=== PATIENT | female | born 1990 | race Caucasian/White ===

== ENCOUNTER 2023-09-23 06:00 | Emergency (ER) | payer OTHER, SELFPAY ==
--- NOTE | ~2023-09-23 | XR_ITS ---
EXAMINATION: XR KNEE, LEFT CLINICAL INFORMATION: Status post fall. Pain. COMPARISON: None available. TECHNIQUE: AP, lateral radiographs of the left knee FINDINGS: No fractures or malalignments identified. No joint effusion visualized. No soft tissue inflammatory changes noted. Normal bone mineralization. XR/XR knee LT 3V IMPRESSION: Normal radiographs of the left knee.
[2023-09-23 06:18] VITALS: BP 135/87; PULSE 103; RESP 16; TEMP 36.5; O2SAT 96; BMI 23.3
--- NOTE | 2023-09-23 06:40 | ED_ITS ---
HPI - Extremity Injury (Lower) General Chief Complaint: Extremity Injury, Lower Stated Complaint: fell in machine sewer/manhole Time Seen by Provider: 09/23/23 06:31 Source: patient and RN notes reviewed Mode of arrival: ambulatory Limitations: no limitations History of Present Illness ED Provider: Jess Amato PA-C HPI Narrative: This is a 32-year-old female, with no known medical problems, who presents emergency department with complaints of left leg pain. Patient states that yesterday afternoon she was walking along a sidewalk when suddenly she stepped into a large man hole approximating it to be around 4 ft. Patient denies hitting her head or loss of consciousness. She states that she struck her leg and has had increased pain and bruising to her left anterior thigh. He has been able to weightbear on her left leg however this causes her to have pain. She also endorses some intermittent nausea for the last several days, concern for . She otherwise denies any fevers, chills, chest pain, shortness of breath, abdominal pain, diarrhea or urinary symptoms. She is sexually active. Her last menstrual period was approximately 1-2 weeks ago, unable to report the exact date. She is not on blood thinners. No other complaints or concerns at this time. MD complaint: thigh injury, knee injury and leg injury Place: street/outdoors Severity: moderate Relieving factors: cold therapy and immobilization Exacerbating factors: weight bearing, movement and palpation Context: fall Associated symptoms: able to partially bear weight Other symptoms: none Related Data Previous Rx's ?Medication ?Instructions ?Recorded acetaminophen 500 mg tablet 500 mg PO Q6H PRN pain #30 tabs 09/23/23 (Tylenol Extra Strength) ibuprofen 600 mg tablet 600 mg PO Q6H PRN pain #30 tabs 09/23/23 Allergies Allergy/AdvReac Type Severity Reaction Status Date / Time azithromycin Allergy Hives Verified 09/23/23 06:20 [From Zithromax Z-Ross] Review of Systems Review of Systems: Yes all other systems are reviewed and are negative Constitutional: Constitutional: Reports as per [facility] Past Medical History Attestation statement: The following information was validated with the patient. Social History Social History Smoked in Last 30 Days: Yes Use of substances other than those prescribed or required for medical reasons: Unknown Advance Directives: No Advance Directives Information Provided: No Do you have a plan to hurt others: No Plan Physical Exam Vital Signs: Vital Signs: Last Vital Signs Temp 97.7 F 09/23/23 06:18 Pulse 103 H 09/23/23 06:18 Resp 16 09/23/23 06:18 BP 135/87 09/23/23 06:18 Pulse Ox 96 09/23/23 06:18 O2 Del Method Room Air 09/23/23 06:18 BMI result Body Mass Index 23.3 Const: General: cooperative, comfortable and no acute distress Orientation/consciousness: patient oriented x3 Limitations: no limitations HEENT: Head: Yes normal to inspection, Yes normocephalic and Yes atraumatic Ears: hearing grossly normal bilaterally General nose exam: Normal external nose present Face and sinus: Yes normal facial exam Mouth: Normal oral and palatal mucosa present, oropharynx normal and moist mucous membranes Throat: Yes posterior oropharynx normal Eyes: General: appearance normal, both eyes and all related structures Eyelids: Yes eyelids normal Conjunctivae: conjunctivae normal Sclerae: sclerae normal Pupils: Equal, round and reactive pupils present EOM: EOMs intact bilaterally Neck: Neck: Yes normal visual inspection, Yes full ROM and Yes no lymphadenopathy Lymphatic: no lymphadenopathy noted Chest: Chest palpation & inspection: normal inspection of the chest Resp: Effort & Inspection: normal respiratory effort and able to speak in complete sentences Auscultation: clear to auscultation bilaterally, no crackles, no rales, no rhonchi and no wheezes Cardio: Rate: regular rate Rhythm: regular rhythm Heart sounds: S1 normal heart sound present and S2 normal heart sound present GI: Inspection: Yes normal to inspection Skin: General skin exam: no rashes or lesions noted Trauma: no lacerations or abrasions Wounds: no wounds Neuro: General: patient oriented x3 and moves all extremities Cranial nerves: Yes Equal, round and reactive pupils present Extrem: Other: Left anterior thigh with approximately 12 x 12 cm superficial hematoma with superficial abrasions. No open wounds. TTP. Full ROM of the left ankle, foot, and knee. Left knee with ttp throughout entire knee joint without any specific joint tenderness or obvious deformity or swelling. General: Yes normal to inspection Right upper extremity: normal to inspection Left upper extremity: normal to inspection Right lower extremity: normal to inspection Course Reevaluation(s) Reevaluation #1: X-ray reviewed, no bony abnormality seen. Urine returns, appears to be contaminated. She has no new urinary symptoms therefore, will await urine culture. She has not . There is food wrappers in her room and has been eating. Discussed workup today with patient, advised follow-up with her PCP and given return precautions. She understands and agrees with plan. Patient stable for discharge. Time: 08:02 Medical Decision Making Medical Decision Making MDM Narrative: This is a 32-year-old female, with no known medical problems, who presents to the emergency department with complaints of left thigh and left knee pain status post falling into a hole yesterday afternoon. On arrival, patient mildly tachycardic at 103bpm, all other vital signs within normal limits. She has well-appearing under no acute distress. She has a large hematoma noted to her anterior left thigh with tenderness palpation, she has full range of motion of the knee, ankle and foot. She is ambulatory. She does endorse nausea over the last 3 days however she denies any fevers, chills, abdominal pain. She states that the nausea typically occurs in the morning. She is currently eating mcdonalds in the exam room. She states that she is concern for and would like to be tested today. Physical exam revealing some tenderness overlying anterior thigh and left knee. Her abdomen is soft and nontender. Plan: Urinalysis, upreg and x-ray of the left femur and left knee Differential Diagnosis Differential Diagnoses: The differential diagnosis associated with the presentation includes Fracture, sprain, strain, contusion, internal ligamentous derangement of the left knee, compartment syndrome-unlikely Lab Data [facility] Lab Attestation statement: I reviewed the patient's lab results. Narrowing with high specific gravity, protein, trace leuk esterases and wbc's, there is significant epithelial cells, likely contamination. She is asymptomatic therefore will not treat for urinary tract infection. Will await urine culture. Urine is negative Labs: Lab Results 09/23/23 Range/Units 07:25 Urine Color Dark Yellow Urine Appearance Cloudy Urine pH 5.5 (5.0-9.0) Ur Specific [place] >= 1.030 H (1.005-1.025) Urine Protein 30 (1+) H (Neg-Trace) mg/dL Urine Glucose (UA) Negative (Negative) mg/dL Urine Ketones Trace (Negative) mg/dL Urine Blood Negative (Negative) Urine Nitrite Negative (Negative) Ur Leukocyte Esterase Trace H (Negative) Urine RBC 0-2 (0-2) /HPF Urine WBC >50 H (0-5) /HPF Ur Squamous Epith Cells 11-20 (0-2) /HPF Urine Bacteria None Seen (None Seen) Hyaline Casts 11-20 (0-2) /LPF WBC Casts Present Urine Test NEGATIVE (NEGATIVE) Independent Interpretation I performed an independent interpretation of an: Plain X-Ray Interpretation: X-ray was reviewed by me, no acute bony abnormality seen. Radiology Impression Discussion of test interpretation with radiology: I have reviewed the radiologist's reading. Radiologist Impression: EXAMINATION: XR KNEE, LEFT CLINICAL INFORMATION: Status post fall. Pain. COMPARISON: None available. TECHNIQUE: AP, lateral radiographs of the left knee FINDINGS: No fractures or malalignments identified. No joint effusion visualized. No soft tissue inflammatory changes noted. Normal bone mineralization. XR/XR knee LT 3V IMPRESSION: Normal radiographs of the left knee. Dictated By: Marek Mcknight MD Discharge Plan Discharge Clinical Impression: Left thigh pain, Hematoma Patient Disposition: Home, Self-Care Instructions: Leg Pain (ED) Additional Instructions: You were seen in the ER due to left leg pain after falling into a man hole. Your xray of your leg did not show any broken bones. Your urine test was negative today. Your urine will be sent out for further testing and we will call you with any abnormal results. Drink plenty of fluids and get plenty of rest. Rest, Ice, use morgan wrap and elevate your left leg. Take ibuprofen and/or tylenol as needed for pain and symptoms. Watch for any new or worsening symptoms including but not limited to worsening pain, swelling, redness, fevers, chills. If any of these occur, please return for re-evaluation. Prescriptions: New ibuprofen 600 mg tablet 600 mg PO Q6H PRN (Reason: pain) Qty: 30 0RF acetaminophen [Tylenol Extra Strength] 500 mg tablet 500 mg PO Q6H PRN (Reason: pain) Qty: 30 0RF Print Language: Citizen [place]
[2023-09-23 07:33] LABS: Appearance Urine Cloudy; Color Urine Dark Yellow; Glucose Urine UA Negative (Negative); Leukocyte Esterase Urine Trace (Negative); Nitrite Urine Negative (Negative); PH 5.5 (5.0-9.0); Specific Gravity - Urine >= 1.030 (1.005-1.025); UMIC TRIGGER UACC YES; Urine Blood Negative (Negative); Urine Ketones Trace mg/dL (Negative); Urine Protein 30 (1+) mg/dL (Neg-Trace)
[2023-09-23 07:36] LABS: UPreg QC Valid YES; Urine Pregnancy NEGATIVE (NEGATIVE)
--- NOTE | 2023-09-23 07:46 | PC.NURSE ---
Reports fell into a manhole last night, denies head hit or LOC. Reports she hit her left thigh, large bruise noted. CSMsX4 intact. Alert and oriented, breathing even and unlabored.
[2023-09-23 07:49] LABS: Bacteria Urine None Seen (None Seen); RBC Urine 0-2 /HPF (0-2); UACC Culture Trigger YES; WBC Urine >50 /HPF (0-5); White Blood Cell Casts Urine Present
[2023-09-23 08:31] VITALS: BP 114/80; PULSE 88; RESP 18; TEMP 36.7; O2SAT 97
--- OUTSIDE RECORDS SUMMARY | 2023-09-30 06:09 | XMS_ITS | Continuity of Care Document ---
Author Organization [facility] Address [address] [place] [address]- Care Team Providers Care Floorwalker Name Role Phone Elkin Boyd MD Primary Care Physician Encounter [facility] [place] Date(s): 12/17/20 - 01/16/21 [facility] [address] [place] [id number] Attending Physician: Cesar Rodriguez Admitting Physician: Cesar Rodriguez Referring Physician: Cesar Rodriguez Allergies, Adverse Reactions, Alerts Substance Reaction Severity Status Zithromax Active Immunizations Not Given Vaccine Date Status Refusal Reason Hepatitis B Immune Globulin 04/07/19 Not Given Patient Refuses hepatitis B adult vaccine 04/07/19 Not Given Pa tient Refuses Medications acamprosate 333 mg oral delayed release tablet 1 tablet = 333 mg, By Mouth, 3 times a day, # 270 tablet, 0 Refills, Maintenance, 10/30/20 8:45:00 EDT, EC Tablet, Partial fill upon patient request if the prescription is for a schedule II opioid drug. Start Date: 10/30/20 Status: Ordered cloNIDine 0.1 mg oral tablet 0.1 mg, By Mouth, 3 times a day, Refills 0, Maintenance, 12/23/16 7:16:18 Start Date: 12/23/16 Status: Ordered doxepin 100 mg oral capsule 1 capsule = 100 mg, By Mouth, Daily at bedtime, # 30 capsule, 0 Refills, Maintenance, 10/19/20 11:12:00 EDT, Capsule, Partial fill upon patient request if the prescription is for a schedule II opioiddrug. Start Date: 10/19/20 Status: Ordered folic acid 1 mg oral tablet 1 mg, 1, tablet, By Mouth, Daily, # 30 tablet, Refills 0, Tot. Refills 0, Maintenance, 10/30/20 8:37:00 EDT, Print Requisition, Partial fill upon patient request if the prescription is for a scheduleII opioid drug. Start Date: 10/30/20 Status: Ordered Librium Capsule See Instructions, PRN Anxiety, 10/19-10/20: 25 mg daily at bedtime, Maintenance, 10/19/20 16:10:00 EDT, Capsule, Partial fill upon patient request if the prescription is for a schedule II opioid drug. Start Date: 10/19/20 Status: Ordered methadone 10 mg oral tablet = 65 mg, By Mouth, Daily, # 195 tablet, 0 Refills, Acute 10/30/22 10:36:00 EDT, 10/30/20 10:35:00 EDT, Tablet, Partial fill upon patient request if the prescription is for a schedule II opioid drug. Start Date: 10/30/20 Stop Date: 10/30/22 Status: Ordered Multivitamin With Minerals 1 tablet, By Mouth, Daily, Maintenance, 10/19/20 16:10:00 EDT Start Date: 10/19/20 Status: Ordered nicotine 21 mg/24 hr transdermal film, extended release 1 patch, Topically, Daily, # 30 patch, 0 Refills, Acute 11/13/21 8:57:00 EDT, 10/30/20 8:57:00 EDT,Patch, Partial fill upon patient request if the prescription is for a schedule II opioid drug. Start Date: 10/30/20 Stop Date: 11/13/21 Status: Ordered thiamine 100 mg oral tablet 100 mg, 1, tablet, By Mouth, Daily, Maintenance, 10/19/20 16:10:00 EDT Start Date: 10/19/20 Status: Ordered Social History Social History Type Response Smoking Status Smoker, current stat us unknown entered on: 10/20/20 Sex
--- OUTSIDE RECORDS SUMMARY | 2023-09-30 06:09 | XMS_ITS | Continuity of Care Document ---
Author Organization [facility] Address [address] [place] [id number]- Care Team Providers Care Train Operations Supervisor Name Role Phone Aris Tam MD Primary Care Physician [phone] [place] [facility] [place]/03/[place] - 09/03/[address] [address]- Encounter Diagnosis Anxiety(Final) - 09/03/22 Discharge Disposition: A-D/C Home Attending Physician: Isatu Thomas MD Admitting Physician: Isatu Thomas MD Referring Physician: Not on Staff, Referring MD Allergies, Adverse Reactions, Alerts Substance Reaction Severity [...] 16:10:00 EDT Start Date: 10/19/20 Status: Ordered thiamine 100 mg oral tablet 100 mg, 1, tablet, By Mouth, Daily, Maintenance, 10/19/20 16:10:00 EDT Start Date: 10/19/20 Status: Ordered Vital Signs Most recent to oldest [Reference Range]: 1 2 3 Height 173 cm (09/03/22 10:22 AM) 173 cm (09/03/22 8:36 AM) 173 cm (09/03/22 8:35 AM) Oxygen Saturation [94-100 %] 98 % (09/03/22 12:41 PM) 98 % (09/03/22 8:36 AM) 98 % (09/03/22 8:30 AM) Pulse Rate [55-90 bpm] 60 bpm (09/03/22 12:41 PM) 75 bpm (09/03/22 8:36 AM) 92 bpm *H* (09/03/22 8:30 AM) Blood Pressure [90-138/55-84 mm Hg] 129/81mm Hg (09/03/22 12:41 PM) 119/82mm Hg (09/03/22 8:36 AM) Respiratory Rate [16-30 br/min] 16 br/min (09/03/22 12:41 PM) 16 br/min (09/03/22 8:36 AM) Temperature [96.8-100.4 DegF] 98.1 DegF (09/03/22 8:36 AM) Mode of Delivery (Oxygen) Room air (09/03/22 12:41 PM) Room air (09/03/22 8:36 AM) Room air (09/03/22 8:30 AM) Blood pressure sites Arm, left (09/03/22 12:41 PM) Arm, left (09/03/22 8:36 AM) Temperature Route Oral (09/03/22 8:36 AM) Dry Weight 67.8 kg (09/03/22 10:22 AM) 67.8 kg (09/03/22 8:36 AM) 67.8 kg (09/03/22 8:35 AM) Dry Weight Obtained Via Patient/family s tated (09/03/22 8:36 AM) Patient/family stated (09/03/22 8:35 AM) Social History Social History Type Response Smoking Status Smoker, current stat us unknown entered on: 10/20/20 Sex Patient Care team information Care Team Personnel Name: Ana GOTTI, Isabella Pozo Position: [facility] RN Member Role: Primary Care Nurse Name: Michaela Louis RN Position: [facility] RN Member Role: Primary Care Nurse Name: Aris Tam MD Position: Reference Physician Member Role: PCP Address: Address: [address] [facility] [place] [address]- [place] Name: *[facility], ED Attending Position: [facility] ED Attendings Patient Name: Renate Yoder RN Position: [facility] ED RN W/OE and Tasks Member Role: Patient Care Provider Name: Rach Hill Position: [facility] ED TA [facility] Name: Isatu Thomas MD Position: [facility] ED Medicine MD Member Role: Admitting Physician Address: Address: [address] [place] [address] [place] [address]- [place] Care Team Related Persons Name: JUDITH JIMÉNEZ Address: home [address] [place] [address] Name: JENNIFER GUAN Address: home [address] [address]
--- OUTSIDE RECORDS SUMMARY | 2023-09-30 06:09 | XMS_ITS | Continuity of Care Document ---
Author Organization [facility] Address [address] [place] [phone]- Care Team Providers Care Yard General Car Supervisor Name Role Phone Alek Pearl MD Primary Care Physician Encounter [place] Date(s): 10/19/20 - 10/30/[address] [phone]- Encounter Diagnosis Fever(Final) - 10/19/20 Discharge Disposition: A-D/C Home Attending Physician: Precious Banks MD Admitting Physician: Eva Baer MD Referring Physician: Not on Staff, Referring [...] opioid drug. Start Date: 10/30/20 Status: Ordered cephalexin monohydrate 500 mg oral capsule 1 capsule = 500 mg, By Mouth, Every 24 hours, From 11/04 to 11/18/20, # 14 capsule, 0 Refills, Acute 11/18/20 8:44:00 EDT, 11/04/20 8:44:00 EDT, Capsule, Partial fill upon patient request if the prescription is for a schedule II opioid drug. Start Date: 11/04/20 Stop Date: 11/18/20 Status: Ordered cloNIDine 0.1 mg oral tablet [...] opioid drug. Start Date: 10/30/20 Status: Ordered ibuprofen 800 mg oral tablet 800 mg, Tablet, By Mouth, 3 times a day, PRN for Temperature, Routine, 10/20/20 0:56:00 EDT Start Date: 10/20/20 Stop Date: 10/31/20 Status: Discontinued Librium Capsule See Instructions, PRN Anxiety, 10/19-10/20: 25 mg daily at bedtime, Maintenance, 10/19/20 16:10:00 EDT, Capsule, Partial fill upon patient request if the prescription is for a schedule II opioid drug. Start Date: 10/19/20 Status: Ordered methadone 10 mg oral tablet 60 mg, Tablet, By Mouth, 10/30/20 9:00:00 EDT Start Date: 10/30/20 Stop Date: 10/30/20 Status: Completed methadone 10 mg oral tablet = 65 [...] Date: 10/30/20 Stop Date: 11/13/21 Status: Ordered pyridoxine 50 mg oral tablet 50 mg, 1, tablet, By Mouth, Daily, # 30 tablet, Refills 0, Tot. Refills 0, Acute 11/30/20 8:38:00 EDT, 10/30/20 8:38:00 EDT, Print Requisition, Partial fill upon patient request if the prescription is for a schedule II opioid drug. Start Date: 10/30/20 Stop Date: 11/30/20 Status: Ordered thiamine 100 mg oral tablet 100 mg, 1, tablet, By Mouth, Daily, Maintenance, 10/19/20 16:10:00 EDT Start Date: 10/19/20 Status: Ordered Procedures Procedure Date Related Diagnosis Body Site Status Arthrocentesis, aspiration a nd/or injection, intermediate joint or bursa (eg, temporomandibular, acromioclavicular, wrist, elbow or ankle, olecranon bursa); without ultrasound guidance 1 10/22/20 Completed Incision and drainage, leg o r ankle; deep abscess or hematoma 2 10/22/20 Compl eted 1right SC joint 2Right tibiotalar joint and subtalar joint Results Orders for Microbiology Reports Name Date Anaerobic Culture (ANAEROBIC CULTURE) Wound Deep Culture w/ Gram Smear (DEEP W OUND CULTURE) 10/22/20 Anaerobic Culture 10/21/20 Sterile Body Fluid Culture W/ Gram Smear 10/21/20 Blood Culture 10/20/20 Blood Culture #2 10/20/20 Blood Culture 10/19/20 Blood Culture #2 10/19/20 Microbiology Reports TEST:Anaerobic Culture STATUS:Auth (Verified) BODY SITE: SOURCE:ASPIRA COLLECTED DATE/TIME:10/22/20 11:01 PM Anaerobic Culture SPECIMEN DESCRIPTION : ASPIRATE R ANKLE SPECIAL REQUESTS : LIMVOL CULTURE : NO ANAEROBES ISOLATED REPORT STATUS : FINAL 10/25/2020 TEST:Deep Wound Culture STATUS:Auth (Verified) BODY SITE: SOURCE:ASPIRA COLLECTED DATE/TIME:10/22/20 11:01 PM Deep Wound Culture SPECIMEN DESCRIPTION : ASPIRATE R ANKLE SPECIAL REQUESTS : LIMVOL GRAM STAIN : 2+ POLYMORPHONUCLEAR LEUKOCYTES 1+ TISSUE CELLS NO ORGANISMS SEEN CULTURE : 1+ STAPH. SPECIES, NOT STAPH. AUREUS REPORT STATUS : FINAL 10/25/2020 ORGANISM 1+ STAPH. SPECIES, NOT STAPH. AUREUS METHOD MIN. INHIB. CONC. (MCG/ML) CIPROFLOXACIN SUSCEPTIBLE ERYTHROMYCIN SUSCEPTIBLE LEVOFLOXACIN SUSCEPTIBLE RIFAMPIN SUSCEPTIBLE TRIMETH/SULFAMETHOX SUSCEPTIBLE VANCOMYCIN SUSCEPTIBLE TEST:Anaerobic Culture STATUS:Unauthenticated BODY SITE: SOURCE:JNTF COLLECTED DATE/TIME:10/21/20 5:05 PM Anaerobic Culture SPECIMEN DESCRIPTION : JOINT FLUID RIGHT ANKLE SPECIAL REQUESTS : LIMVOL CULTURE : NO ANAEROBES ISOLATED SO FAR. REPORT STATUS : PRELIMINARY REPORT TEST:Sterile Fluid Culture STATUS:Auth (Verified) BODY SITE: SOURCE:JOINT COLLECTED DATE/TIME:10/21/20 5:04 PM Sterile Fluid Culture SPECIMEN DESCRIPTION : JOINT FLUID RIGHT ANKLE SPECIAL REQUESTS : LIMVOL GRAM STAIN : 2+ POLYMORPHONUCLEAR LEUKOCYTES 3+ RBC'S 1+ TISSUE CELLS NO ORGANISMS SEEN CULTURE : NO GROWTH 2 DAYS REPORT STATUS : FINAL 10/24/2020 TEST:Blood Culture STATUS:Auth (Verified) BODY SITE: SOURCE:Blood COLLECTED DATE/TIME:10/20/20 3:23 AM Blood Culture SPECIMEN DESCRIPTION : BLOOD L FOREARM SPECIAL REQUESTS : NONE CULTURE : NO GROWTH 5 DAYS. REPORT STATUS : FINAL 10/25/2020 TEST:Blood Culture, Second Order STATUS:Auth (Verified) BODY SITE: SOURCE:Blood COLLECTED DATE/TIME:10/20/20 3:23 AM Blood Culture, Second Order SPECIMEN DESCRIPTION : BLOOD L WRIST SPECIAL REQUESTS : NONE CULTURE : NO GROWTH 5 DAYS. REPORT STATUS : FINAL 10/25/2020 TEST:Blood Culture, Second Order STATUS:Auth (Verified) BODY SITE: SOURCE:Blood COLLECTED DATE/TIME:10/19/20 12:33 PM Blood Culture, Second Order SPECIMEN DESCRIPTION : BLOOD NONE SPECIAL REQUESTS : CRITICAL VALUE CALLED AND VERIFIED BY READBACK FOR: GRAM POSITIVE COCCI CALLED TO JUAN MIGUEL PITTS, ON 10/19/2020 AT 23:31 BY [employer] [id number] CULTURE : STREPTOCOCCI, GR.A BETA HEMOLYTIC Result reported to the [facility]. CULTURE RESULTS PHONED TO: Iza/AVIS,TECH 1144,10/21/20 @ 1030 REPORT STATUS : FINAL 10/22/2020 ORGANISM STREPTOCOCCI, GR.A BETA HEMOLYTIC Result reported to the [facility]. METHOD MIN. INHIB. CONC. (MCG/ML) CLINDAMYCIN SUSCEPTIBLE ERYTHROMYCIN SUSCEPTIBLE PENICILLIN SUSCEPTIBLE PENICILLIN . BETA HEMOLYTIC STREPTOCOCCI REMAIN UNIVERSALLY PENICILLIN SUSCEPTIBILE TO PENICILLIN AT THIS TIME. THIS ORGANISM IS PENICILLIN SUSCEPTIBLE AND IS CONSIDERED TO BE SUSCEPTIBLE TO AMPICILLIN AND ANY THIRD AND FOURTH GENERATION OF CEPHALOSPORINS. VANCOMYCIN SUSCEPTIBLE TEST:Blood Culture STATUS:Auth (Verified) BODY SITE: SOURCE:Blood COLLECTED DATE/TIME:10/19/20 11:50 AM Blood Culture SPECIMEN DESCRIPTION : BLOOD NO SITE SPECIAL REQUESTS : CRITICAL VALUE CALLED AND VERIFIED BY READBACK FOR: GRAM POSITIVE COCCI CALLED TO [id number] ON 10/19/2020 AT 23:31 BY TECH [id number] CULTURE : STREPTOCOCCI, GR.A BETA HEMOLYTIC Result reported to the [facility]. FOR SUSCEPTIBILITY RESULT REFER TO BLOOD CULTURE Group A beta Hemolytic Strep was identified by multi-plex PCR CULTURE RESULTS PHONED TO: Iza/[id number],TECH 1144,10/21/20 @ 1030 REPORT STATUS : FINAL 10/22/2020 Radiology Reports * Exam Date Time Procedure Performing Provider Status 10/23/20 1:33 AM Hand Min 3 Views Right Dawit Puckett son; Auth (Verified) Notes: (Hand Min 3 Views Right) Reason For Exam: Pain RESULT: Hand Min 3 Views Right Hand Right, 3 views REASON: Right hand and wrist pain. History of polysubstance abuse. Clinical Question(s): Septic arthritis. COMPARISON: CT right upper extremity 10/20/2020 FINDINGS: No soft tissue, joint or bone pathology is identified. IMPRESSION: Negative plain radiographic examination of right hand. I have personally reviewed the images and I agree with this report. WSN: [id number] Ordering Physician: Darnell Garzon Dictated By: Tima Light MD Dictated Date/Time: 10/23/20 8:32 am Reviewed By: Connor Avendano MD Signed By: Connor Avendano MD Signed Date/Time: 10/23/20 8:37 am Transcribed By: JUDITH Transcribed Date/Time: 10/23/20 8:12 am * Exam Date Time Procedure Performing Provider Status 10/19/20 1:21 PM Chest 2 Views Frontal and Lat Olga Begum; Auth (Verified) Notes: (Chest 2 Views Frontal and Lat) Reason For Exam: Cough RESULT: Chest 2 Views Frontal and Lat Chest 2 Views Frontal and Lat Hx of Present Illness: pt states that she started with ankle pain on wednesday when she arrived to the senior care. question abcess to R wrist, pt states she shoots up in her wrist. uses heroin and cocaine. pt denies injury to her ankle; Reason: Cough; Clinical Question(s): Pneumonia COMPARISON: 10/10/2015 FINDINGS: LINES AND TUBES: None. LUNGS AND PLEURA: Clear lungs. Normal pulmonary vascularity. No pleural effusion. No pneumothorax. HEART, MEDIASTINUM AND JR: Heart is normal in size. Normal upper mediastinal and hilar contour. BONES AND SOFT TISSUES: There is a healed fracture of the right seventh rib posteriorly which is new from 2016. No other bony abnormality is noted. IMPRESSION: No acute abnormality. WSN: [id number] Ordering Physician: Chaz Strauss Dictated By: Zhen Loera MD Dictated Date/Time: 10/19/20 1:24 pm Reviewed By: Zhen Loera MD Signed By: Zhen Loera MD Signed Date/Time: 10/19/20 1:24 pm Transcribed By: JUDITH Transcribed Date/Time: 10/19/20 1:23 pm * Exam Date Time Procedure Performing Provider Status 10/19/20 1:21 PM Ankle Min 3 Views Right [place]; Auth (Verified) Notes: (Ankle Min 3 Views Right) Reason For Exam: Pain RESULT: Ankle Min 3 Views Right Ankle Min 3 Views Right Hx of Present Illness: pt states that she started with ankle pain on Wednesday when she arrived to the senior care. Question abscess to R wrist, pt states she shoots up in her wrist. Uses heroin and cocaine. Pt denies injury to her ankle; Reason: Pain; Clinical Question(s): Fracture. COMPARISON: None FINDINGS: No evidence of acute or healing fracture or bone lesion. Intact ankle mortise and talar dome. No arthritic changes. Normal soft tissues. IMPRESSION: Normal. WSN: [id number] Ordering Physician: Chaz Strauss Dictated By: Zhen Loera MD Dictated Date/Time: 10/19/20 1:23 pm Reviewed By: Zhen Loera MD Signed By: Zhen Loera MD Signed Date/Time: 10/19/20 1:23 pm Transcribed By: CSRadha Transcribed Date/Time: 10/19/20 1:21 pm Vital Signs Most recent to oldest [Reference Range]: 1 2 3 Height 166 cm (10/28/20 1:52 PM) 166 cm (10/23/20 4:39 AM) 166 cm (10/22/20 6:42 PM) Weight 54.3 kg (10/28/20 1:52 PM) 64 kg (10/22/20 6:42 PM) 64 kg (10/20/20 1:16 AM) Oxygen Saturation [94-100 %] 99 % (10/30/20 6:00 AM) 99 % (10/29/20 10:00 PM) 99 % (10/29/20 3:00 PM) Pulse Rate [55-90 bpm] 77 bpm (10/30/20 6:00 AM) 71 bpm (10/29/20 10:00 PM) 64 bpm (10/29/20 3:00 PM) Body Mass Index [18.5-24.99] 19.71 (10/28/20 1:52 PM) 23.23 (10/22/20 6:42 PM) 23.23 (10/20/20 1:16 AM) Blood Pressure [90-138/55-84 mm Hg] 111/65mm Hg (10/30/20 6:00 AM) 109/68mm Hg (10/29/20 10:00 PM) 98/52mm Hg (10/29/20 3:00 PM) Respiratory Rate [16-30 br/min] 20 br/min (10/30/20 11:43 AM) 20 br/min (10/30/20 10:33 AM) 18 br/min (10/30/20 9:10 AM) Temperature [96.8-100.4 DegF] 98.6 DegF (10/30/20 6:00 AM) 98.4 DegF (10/29/20 10:00 PM) 97.3 DegF (10/29/20 3:00 PM) Liters per Minute 0 L/min (10/19/20 12:53 PM) Mode of Delivery (Oxygen) Room air (10/30/20 6:00 AM) Room air (10/29/20 10:00 PM) Room air (10/29/20 3:00 PM) Blood pressure sites Arm, right (10/29/20 10:00 PM) Arm, right (10/29/20 3:00 PM) Arm, left (10/29/20 6:00 AM) Temperature Route Oral (10/30/20 6:00 AM) Oral (10/29/20 10:00 PM) Oral (10/29/20 3:00 PM) Dry Weight 64 kg (10/20/20 1:16 AM) 64 kg (10/19/20 9:56 PM) 64 kg (10/19/20 6:23 PM) Weight Obtained Via Bed scale (10/28/20 1:52 PM) Social History Social History Type Response Smoking Status Smoker, current stat us unknown entered on: 10/20/20 Sex
--- OUTSIDE RECORDS SUMMARY | 2023-09-30 06:09 | XMS_ITS | Continuity of Care Document ---
Author Organization [facility] Address [address] [place] [phone]- Care Team Providers Care Director Money Name Role Phone Elkin Boyd MD Primary Care Physician [place] [facility] 11[place]04[place]20 - 12/04/20 [facility] [address] [place] [id number] Attending Physician: Cesar Rodriguez Admitting Physician: Cesar [...]
--- OUTSIDE RECORDS SUMMARY | 2023-09-30 06:10 | XMS_ITS | Continuity of Care Document ---
Author Organization [facility] Address [address] [place] [phone]- Care Team Providers Care Comfort Station Attendant Name Role Phone Elkin Boyd MD Primary Care Physician Encounter [facility] [place] Date(s): 04/07/19 - 04/07/[address] [address]- [facility] Discharge Disposition: A-D/C Home Attending Physician: Pedro Anguiano MD Admitting Physician: Pedro Anguiano MD Referring Physician: Not on Staff, Referring MD Allergies, Adverse Reactions, Alerts Substance Reaction Severity Status Zithromax Active Immunizations Not Given Vaccine Date Status Refusal Reason hepatitis B adult vaccine 04/07/19 Not Given Pa tient Refuses Hepatitis B Immune Globulin 04/07/19 Not Given Patient Refuses Medications cloNIDine 0.1 mg oral tablet 0.1 mg, By Mouth, 3 times a day, Refills 0, Maintenance, 12/23/16 7:16:18 Start Date: 12/23/16 Status: Ordered doxepin 50 mg oral capsule 1 capsule = 50 mg, By Mouth, Daily at bedtime, 0 Refills, Maintenance, 12/23/16 7:18:30, Capsule Start Date: 12/23/16 Status: Ordered doxycycline hyclate 100 mg oral capsule 1 capsule = 100 mg, By Mouth, 2 times a day, for 7 days, with fluids may take with food to minimizeabdominal discomfort, # 14 capsule, 0 Refills, Acute 04/14/19 17:26:00 EST, 04/07/19 17:26:00 EST, Capsule, [id number] Start Date: 04/07/19 Stop Date: 04/14/19 Status: Ordered gabapentin 300 mg oral capsule 300 mg, 1, capsule, By Mouth, 3 times a day, # 90 capsule, Refills 0, Maintenance, 12/23/16 7:17:18 Start Date: 12/23/16 Status: Ordered hydrOXYzine pamoate 50 mg oral capsule 1 capsule = 50 mg, By Mouth, 3 times a day, 0 Refills, Maintenance, 12/23/16 7:20:51 Start Date: 12/23/16 Status: Ordered PROzac 20 mg oral capsule 20 mg, 1, capsule, By Mouth, Daily, # 30 capsule, Refills 0, Maintenance, 12/23/16 7:14:35 Start Date: 12/23/16 Status: Ordered valACYclovir 500 mg oral tablet 500 mg, 1, tablet, By Mouth, Daily, Refills 0, Maintenance, 12/23/16 7:19:27 Start Date: 12/23/16 Status: Ordered Results Orders for Microbiology Reports Name Date Wet Prep 04/07/19 Microbiology Reports TEST:Wet Prep STATUS:Auth (Verified) BODY SITE: SOURCE:VAGINA COLLECTED DATE/TIME:04/07/19 4:20 PM Wet Prep SPECIMEN DESCRIPTION : VAGINAL SPECIMEN SPECIAL REQUESTS : NONE DIRECT EXAM : 1+ WHITE BLOOD CELLS 2+ YEAST NO TRICHOMONAS OBSERVED TRANSPORT TIME GREATER THAN ONE HOUR MAY CAUSE FALSE NEGATIVE RESULTS FOR DETECTION OF MOTILE TRICHOMONADS NO CLUE CELLS OBSERVED REPORT STATUS : FINAL 04/07/2019 Vital Signs Most recent to oldest [Reference Range]: 1 2 3 Oxygen Saturation [94-100 %] 100 % (04/07/19 5:23 PM) 97 % (04/07/19 10:55 AM) 100 % (04/07/19 10:53 AM) Pulse Rate [55-90 bpm] 70 bpm (04/07/19 5:23 PM) 102 bpm *H* (04/07/19 10:55 AM) 115 bpm *H* (04/07/19 10:53 AM) Blood Pressure [90-138/55-84 mm Hg] 111/71mm Hg (04/07/19 5:23 PM) 119/80mm Hg (04/07/19 10:55 AM) Respiratory Rate [16-30 br/min] 16 br/min (04/07/19 5:23 PM) 18 br/min (04/07/19 10:55 AM) Temperature [96.8-100.4 DegF] 98.0 DegF (04/07/19 5:23 PM) 98.0 DegF (04/07/19 10:55 AM) Mode of Delivery (Oxygen) Room air (04/07/19 5:23 PM) Room air (04/07/19 10:55 AM) Room air (04/07/19 10:53 AM) Blood pressure sites Arm, left (04/07/19 5:23 PM) Arm, right (04/07/19 10:55 AM) Temperature Route Oral (04/07/19 5:23 PM) Oral (04/07/19 10:55 AM) Social History Social History Type Response Smoking Status Never smoker entered on: 12/23/16 Sex
--- OUTSIDE RECORDS SUMMARY | 2023-09-30 06:10 | XMS_ITS | Continuity of Care Document ---
Author Organization [facility] Address [address] [place] [phone]- Care Team Providers Care Building Superintendent Name Role Phone Elkin Boyd MD Primary Care Physician Encounter [facility] [place] Date(s): 11/04/20 - 12/04/20 [facility] [address] [place] [id number] Allergies, Adverse Reactions, Alerts Substance Reaction Severity [...]
== END 2023-09-23 08:33 | disposition home or self-care (01) ==
PROVIDERS: Physician Assistant Medical; Emergency Provider Student in an Organized Health Care Education/Training Program
DX: M79.605 Pain in left leg (principal); S70.12XA Contusion of left thigh, initial encounter; W17.1XXA Fall into storm drain or manhole, initial encounter; Y93.01 Activity, walking, marching and hiking; Y92.414 Local residential or business street as the place of occurrence of the external cause; Y99.9 Unspecified external cause status
CPT/HCPCS: 73562; 81001; 81025; 87086; 99283; 99284

== ENCOUNTER 2025-01-22 16:15 | Emergency (ER) | payer OTHER, SELFPAY ==
[2025-01-22 16:34] VITALS: BP 143/67; PULSE 79; RESP 18; TEMP 36.4; O2SAT 98; BMI 26.6
--- NOTE | 2025-01-22 16:35 | ED_ITS ---
HPI - General Adult General Chief complaint: General Medical Stated complaint: L hand cellulitis Time Seen by Provider: 01/22/25 19:15 Source: patient Mode of arrival: ambulatory Limitations: no limitations History of Present Illness ED Provider: Dr. Pineda HPI narrative: This is a 34-year-old female history of IV drug use presented hospital today for a spot in the left hand. Patient stated that she inject cocaine into the left hand. She stated that the needle was intact when she pulled out of her left hand. She does not think the needle stuck in there. Denies any fever. No swelling of the left hand. She is able to move her fingers however limited due to the amount of swelling. Related Data Previous Rx's ?Medication ?Instructions ?Recorded acetaminophen 500 mg tablet 500 mg PO Q6H PRN pain #30 tabs 09/23/23 (Tylenol Extra Strength) ibuprofen 600 mg tablet 600 mg PO Q6H PRN pain #30 t abs 09/23/23 cephalexin 500 mg capsule 500 mg PO Q8H 7 days #21 cap s 01/22/25 doxycycline hyclate 100 mg capsule 100 mg PO BID 7 day s #14 caps 01/22/25 ibuprofen 400 mg tablet 400 mg PO Q8H PRN pain #60 t abs 01/22/25 Allergies Allergy/AdvReac Type Severity Reaction Status Date / Time azithromycin (From Zithromax Allergy Hives Verified 01/22/25 16:36 Z-Ross) Review of Systems 2 Review of Systems: Pertinent review of systems as mentioned in HPI. All other system otherwise negative. [facility] Past Medical History [facility] Narrative: IV drug use Social History Social History Advance Directives: No Advance Directives Information Provided: Yes Do you have a plan to hurt others: No Plan Physical Exam ED Exam Exam: General: Pleasant, no distress, interacting appropriately Head: Normacephalic, atraumatic Extremities: Swelling over the left hand, there is some swelling of the fingers. No sign of flexor tendon pain. Patient does have redness over the left hand. Bedside ultrasound shows cobblestoning in his soft tissue consistent with cellulitis. Neurological: Awake and alert, no facial droop noted Skin: Warm and dry Psychiatric: Appropriate mood and thoughts Vital Signs: Vital Signs - 24 hr 10/20/25 16:34 Temperature 97.6 F Pulse Rate 79 Respiratory Rate 18 Blood Pressure 143/67 H Pulse Oximetry 98 Oxygen Delivery Method Room Air BMI result Body Mass Index 26.6 Course Course Course Narrative: RME, this is a rapid medical exam performed by Nakul Hernandez please refer to primary provider for complete H&P- 34-year-old female presents for evaluation of redness, swelling and pain to the left hand. She admits to injecting cocaine 2 days ago and believes she missed a vein. Denies any fevers or chills. Plan for labs, tox screen Medical Decision Making Medical Decision Making [facility] Narrative: 34-year-old female history of IV drug use presented hospital today for left hand cellulitis after injecting cocaine to the dorsal aspect of her hand a couple of days ago. Did not appreciate any obvious signs of abscess on ultrasound on bedside. Appears to be cobblestoning. We will plan to discharge patient on Keflex and doxycycline. We will plan to give patient a dose here. Return precautions given for sepsis over the patient. She agrees and understands this plan. She will plan to keep an eye on the infection. She does not think she has a retained needle in her left hand. I did offer x-ray. Patient has kindly refused Patient will be discharged home. Differential Diagnosis Differential Diagnoses: The differential diagnosis associated with the presentation includes Cellulitis, and abscess, retained metallic object Lab Data [facility] Lab Attestation statement: I reviewed the patient's lab results. 01/22/25 16:56 01/22/25 16:56 Labs: Lab Results 01/22/25 Range/Units 16:56 WBC 5.0 (4.8-10.8) X10*3/uL RBC 4.57 (4.20-5.50) X10*6/uL Hgb 12.8 (12.0-16.0) g/dl Hct 37.8 (37.0-47.0) % MCV 82.7 (80.0-98.0) fL MCH 28.0 (27.0-33.0) pg MCHC 33.9 (31.0-35.0) g/dl RDW 12.5 (11.0-16.0) % Plt Count 243 (160-400) X10*3/uL MPV 9.8 (9.4-12.3) fL Immature Gran % (Auto) 0.4 (0.0-0.4) % Neut % (Auto) 59.2 (45-73) % Lymph % (Auto) 32.4 (20-40) % [place] % (Auto) 7.4 (2-11) % Eos % (Auto) 0.2 (0-4) % Baso % (Auto) 0.4 (0-2) % Lymph # (Auto) 1.6 (1.2-4.9) X10*3/uL [place] # (Auto) 0.4 (0.1-1.2) X10*3/uL Eos # (Auto) 0.0 (0.0-0.4) X10*3/uL Baso # (Auto) 0.0 (0.0-0.2) X10*3/uL Abs Immat Gran (auto) 0.02 (0.00-0.03) X10*3/uL Absolute Neuts (auto) 3.0 (2.0-8.3) x10*3/uL Absolute Nucleated RBC 0.000 (0.0-0.012) X10*3/uL Nucleated RBC % (auto) 0.0 (0.0-0.2) /100WBC Sodium 139 (135-145) mmol/L Potassium 4.0 (3.3-5.1) mmol/L Chloride 105 (96-108) mmol/L Carbon Dioxide 26 (22-29) mmol/L Anion Gap 12 (12-20) BUN 8 L (9-16) mg/dL Creatinine 0.79 (0.5-1.4) mg/dL Estim Creat Clear Calc 104.7 Estimated GFR > 60 Random Glucose 95 (60-115) mg/dL Lactic Acid 1.1 (0.5-2.0) mmol/L Calcium 9.3 (8.4-10.2) mg/dL Total Bilirubin 0.2 (0.0-1.0) mg/dL AST 20 (5-31) U/L ALT 23 (0-31) U/L Alkaline Phosphatase 58 (39-117) U/L Total Protein 7.2 (6.5-8.0) g/dL Albumin 4.2 (3.5-5.0) g/dL Lipase 28 (8-78) U/L Beta HCG, Quant < 2 mIU/mL Ethyl Alcohol 12 mg/dL Prescription Management I considered prescription management with: Antibiotic Discharge Plan Discharge Clinical Impression: Cellulitis Qualifiers: Site of cellulitis: extremity Site of cellulitis of extremity: upper extremity Laterality: left Qualified Code(s): L03.114 - Cellulitis of left upper limb Patient Disposition: Home, Self-Care Instructions: Cellulitis (ED) Prescriptions: New doxycycline hyclate 100 mg capsule 100 mg PO BID 7 Days Qty: 14 0RF cephalexin 500 mg capsule 500 mg PO Q8H 7 Days Qty: 21 0RF ibuprofen 400 mg tablet 400 mg PO Q8H PRN (Reason: pain) Qty: 60 0RF No Action ibuprofen 600 mg tablet 600 mg PO Q6H PRN (Reason: pain) Qty: 30 0RF acetaminophen [Tylenol Extra Strength] 500 mg tablet 500 mg PO Q6H PRN (Reason: pain) Qty: 30 0RF Print Language: Argentine
[2025-01-22 17:02] LABS: MANUAL DIFF FLAG NO
[2025-01-22 17:03] LABS: Hematocrit 37.8 % (37.0-47.0); Hemoglobin 12.8 g/dl (12.0-16.0); Imm Gran Abs Auto 0.02 X10*3/uL (0.00-0.03); Imm Gran Pct Auto 0.4 % (0.0-0.4); Lymphocytes Absolute Auto 1.6 X10*3/uL (1.2-4.9); Mean Corpuscular HGB Conc 33.9 g/dl (31.0-35.0); Mean Corpuscular Hemoglobin 28.0 pg (27.0-33.0); Mean Corpuscular Volume 82.7 fL (80.0-98.0); NRBC Abs Auto 0.000 X10*3/uL (0.0-0.012); NRBC Pct Auto 0.0 /100WBC (0.0-0.2); Platelet Count 243 X10*3/uL (160-400); Red Blood Count 4.57 X10*6/uL (4.20-5.50); White Blood Count 5.0 X10*3/uL (4.8-10.8)
[2025-01-22 17:23] LABS: Alanine Aminotransferase 23 U/L (0-31); Albumin Level 4.2 g/dL (3.5-5.0); Alkaline Phosphatase 58 U/L (39-117); Anion Gap 12 (12-20); Aspartate Amino Transferase 20 U/L (5-31); Blood Urea Nitrogen 8 mg/dL (9-16); Calcium 9.3 mg/dL (8.4-10.2); Carbon Dioxide 26 mmol/L (22-29); Chloride 105 mmol/L (96-108); Creatinine Clr Calc Pharmacy 104.7; Estimated Glomerular Filt Rate > 60; Lipase 28 U/L (8-78); Potassium 4.0 mmol/L (3.3-5.1); Sodium 139 mmol/L (135-145); Total Protein 7.2 g/dL (6.5-8.0)
[2025-01-22 19:47] VITALS: BP 143/67; PULSE 79; RESP 18; TEMP 36.4; O2SAT 98
--- OUTSIDE RECORDS SUMMARY | 2025-01-22 21:07 | XMS_ITS | Clinical Summary ---
Author Organization [employer] Address [address] [place] [address] Care Team Providers Care Air Crew Officer Name Role Phone Unavailable Primary Care Provider Unavailabl e Allergies Active Allergy Reactions Criticality Noted Date Comments Azithromycin 03/03/2021 Medications methadone (Methadose) 40 MG dispersible tablet Take by mouth. Active Social History Tobacco Use Types Packs/Day Years Used Date Smoking Tobacco: Former Cigarettes Smokeless Tobacco: Never Tobacco Cessation:Counseling Given: Not Answered Comments Unknown Sex and Gender Information Value Date Recorded Sex Assigned at Female 02/02/2022 10:39 AM EDT Legal Sex Female 10:39 AM EDT Gender Identity Female 02/02/2022 10:39 AM EDT Sexual Orientation Straight 02/02/2022 10 :39 AM EDT Plan of Treatment Health Maintenance Due Date Last Done Comments Dental Prophylaxis 1991 Depression Screening 1991 HIV Screening 1991 SDOH Screening 1991 Disability Screening 01/01/1992 Alcohol/Substance Use Screening 2003 Family Planning (PISQ) 12/30/2006 Hepatitis C Screening 12/30/2009 HPV Vaccines (3 - 3-dose series) 04/02/2011 12/03/2010, 10/01/2010 Pap Smear 12/30/2012 Dental Oral Exam 09/16/2021 03/17/2021 Cervical Cancer Screening 12/30/2021 HPV/Cotest 12/30/2021 Dental X-Ray: Bitewings 03/18/2022 03/17/2021 Tobacco Screening 09/18/2023 09/17/2022 Dental X-Ray: Full Mouth 03/18/2024 03/17/2021 COVID-19 Vaccine ( season) 2024 Influenza Vaccine (#1) 2024 DTaP/Tdap/Td Vaccines (9 - Td or Tdap) 12/21/2029 12/22/2019, 03/16/2014, 09/25/2009, Additional history exists Zoster Vaccines (1 of 2) 12/30/2041 RSV Patients and Patients Aged 60 years or older (1 - 1-dose 75+ series) 12/30/2066 HIB Vaccines Completed 03/20/1993, 0 09/1992, 04/16/1992, Additional history exists IPV Vaccines Completed 01/04/1997, 12/1993, 04/16/1992, Additional history exists Meningococcal Vaccine Completed 12/30/2007 Hepatitis B Vaccines Completed 08/02/2008, 11/06/1992, 01/24/1992, Additional history exists Hepatitis A Vaccines Aged Out 09/28/2013, 12/09/19 13 No longer eligible based on patient's age to complete this topic Meningococcal B Vaccine Aged Out No l onger eligible based on patient's age to complete this topic Pneumococcal Vaccine: Pediatrics (0 to 5 Years) and At-Risk Patients (6 to 49) Years Aged Out No longer eligible based on patient's age to complete this topic RSV under 20 months Aged Out No longe r eligible based on patient's age to complete this topic Rotavirus Vaccines Aged Out No longer eligible based on patient's age to complete this topic Procedures Procedure Name Priority Date/Time Associated Diagnosis Comments INTRAORAL - COMPLETE SERIES OF RADIOGRAPHIC IMAGES Routine 03/17/2021 12:00 AM EST COMPREHENSIVE ORAL EVALUATION - NEW OR ESTABLISHED PATIENT Routine 03/17/2021 12:00 AM EST from Last 3 Months or Most Recently Relevant to Health Maintenance Insurance [facility] C3 DENTAL - [facility] MEDICAID [place] ADULT DENTAL[place] STAND ADULT
--- OUTSIDE RECORDS SUMMARY | 2025-01-22 21:07 | XMS_ITS ---
Author Name [facility] Organization Unknown Care Team Organization Name Specialty Phone Email Start Date End Da te [facility] Termed, PROVIDER Primary Care 08/10/202211/03 [facility] Aris Tam Primary Care 02/10/20222023
== END 2025-01-22 19:48 | disposition home or self-care (01) ==
PROVIDERS: Physician Assistant; Emergency Provider Student in an Organized Health Care Education/Training Program; PCP Physician Assistant
DX: L03.114 Cellulitis of left upper limb (principal); F14.90 Cocaine use, unspecified, uncomplicated; Z51.81 Encounter for therapeutic drug level monitoring; Z79.899 Other long term (current) drug therapy
CPT/HCPCS: 36415; 80053; 80307; 83605; 83690; 84702; 85025; 87040; 99282; 99283